=== PATIENT | female | born 1965 | race Caucasian/White ===

== ENCOUNTER 2024-01-05 15:01 | Emergency (ER) | payer MEDICARE, MEDICAID ==
[~2024-01-05] VITALS: Ht 162.6 cm; Wt 73.6 kg
[2024-01-05] MEDS: proparacaine 0.5% ophthalmic drops 15ml LEFTEYE ONE (16:26)
[2024-01-05] MEDS: erythromycin ophthalmic ointment 1gm tube LEFTEYE ONE (16:26)
[2024-01-05] MEDS ORDERED: ERYT1OIN6 LEFTEYE (16:30)
[2024-01-05] MEDS ORDERED: AMOX-580 PO (16:30)
[2024-01-05 16:37] VITALS: BP 114/67; PULSE 71; RESP 15; TEMP 98.4; O2SAT 99
== END 2024-01-05 16:38 | disposition home or self-care (01) ==
LOC: ER 15:02
DX: S05.02XA Injury of conjunctiva and corneal abrasion without foreign body, left eye, initial encounter (principal); Z88.8 Allergy status to other drugs, medicaments and biological substances; Z79.2 Long term (current) use of antibiotics; W54.0XXA Bitten by dog, initial encounter; Y93.89 Activity, other specified; Y92.89 Other specified places as the place of occurrence of the external cause; Y99.8 Other external cause status
CPT/HCPCS: 99283; A6410

== ENCOUNTER 2024-03-17 16:21 | Emergency (ER) | payer MEDICARE, MEDICAID ==
[~2024-03-17] VITALS: Ht 160 cm; Wt 71.8 kg
[2024-03-17] MEDS: acetaminophen 325mg tablet PO ONE (17:43)
[2024-03-17] MEDS ORDERED: AMOX-580 PO (18:25)
[2024-03-17] MEDS: amox tr/potassium clavulanate 875/125mg TAB PO ONE (18:40)
[2024-03-17 18:56] VITALS: BP 134/78; PULSE 84; RESP 16; TEMP 98.3; O2SAT 98
== END 2024-03-17 18:57 | disposition home or self-care (01) ==
LOC: ER 16:22
DX: N61.1 Abscess of the breast and nipple (principal); Z88.5 Allergy status to narcotic agent; Z79.2 Long term (current) use of antibiotics
CPT/HCPCS: 10160; 76642; 82948; 87070; 99284

== ENCOUNTER 2024-03-19 15:16 | Outpatient (CLI) | payer MEDICAID, MEDICARE ==
[~2024-03-19 15:16] MED LIST: AMOX-580 PO
== END 2024-03-19 23:59 | disposition home or self-care (01) ==
LOC: LAB SPEC 15:16
PROVIDERS: ATTEND Surgery
DX: N61.0 Mastitis without abscess (principal)
CPT/HCPCS: 87070; 87075

== ENCOUNTER 2024-06-19 12:20 | Emergency (ER) | payer MEDICARE, MEDICAID ==
[~2024-06-19] VITALS: Ht 160 cm; Wt 63.9 kg
[~2024-06-19 12:20] MED LIST changes: -AMOX-580 PO; +INSU200I SUBCUT
[2024-06-19 12:23] VITALS: BP 147/49; PULSE 75; RESP 16; TEMP 98.4; O2SAT 97
== END 2024-06-19 13:45 | disposition left against medical advice (07) ==
LOC: ER 12:21
DX: R05.9 Cough, unspecified (principal); J00 Acute nasopharyngitis [common cold]; R09.81 Nasal congestion; Z53.21 Procedure and treatment not carried out due to patient leaving prior to being seen by health care provider

== ENCOUNTER 2025-03-22 14:35 | Emergency (ER) | payer MEDICARE, MEDICAID ==
[~2025-03-22] VITALS: Ht 160 cm; Wt 70.5 kg
[2025-03-22 14:37] VITALS: TEMP 97.8
[2025-03-22 16:31] LABS: MEAN PLATELET VOLUME 7.1 FL (7.4-10.4); RED CELL DISTRIBUTION WIDTH 13.4 % (11.5-14.5)
[2025-03-22 16:44] LABS: CREATININE 0.79 MG/DL (0.40-0.90); TOTAL CARBON DIOXIDE 29.2 MMOL/L (24-32); eCRCL 63 ML/MIN; eGFR 74 ML/MIN
--- NOTE | 2025-03-22 17:07 | Physician Documentation ---
History of Present Illness ~ Chief Complaint: Dizziness Stated Complaint: DIZZNESS/VOMITING Time Seen by MD: 15:41 Primary Medical Doctor: JULIO COLINDRES Source: patient Mode of Arrival: POV Exam Limitations: no limitations HPI 59-year-old female with intermittent dizziness and she is concerned that this may be a symptom of Parkinson's. She also reports intermittent vomiting. She states the dizziness occurred about three days after she hit her head trying to load her dog into her truck. There was no LOC and no headache. She states the dizziness is not related to head position or body position. She currently is asymptomatic. She also reports that her limbs have been jerking and she is not sure if this is "Parkinson's or psychological." No headache, vision changes, chest pain, palpitations, sob, abdominal pain, nausea, syncopal episodes. Medication Reconciliation Allergies: Coded Allergies: codeine (Verified Allergy, Unknown, 03/17/24) oxycodone (Verified Allergy, Unknown, 03/17/24) Scheduled Insulin Lispro (Humalog Kwikpen), 12 UNIT SUBCUT DAILY Past Medical History Past Medical History: Anxiety, Depression Past Surgical History: noncontributory Drug Use: none Lives In: Home Review of Systems All Other Systems at this time: Reviewed and Negative Physical Exam Vital Signs: Temperature: 97.8, Source: Oral, Heart Rate: 78, Respiratory Rate: 17, BP: 184/67, Pulse Oximetry: 97, Weight: 70.500 Oxygen Flow Rate: 0 Physical Exam GENERAL: Alert, no acute distress. HEENT: NCAT, EOMI, PERRLA, normal oropharynx, moist oral mucosa. NECK: Supple, trachea midline. CARDIAC: Regular rate and rhythm, no murmurs, rubs, or gallops. PV: Equal distal pulses. No lower extremity edema, cap refill less than 2 seconds. RESPIRATORY: Equal breath sounds, clear to auscultation bilaterally, no respir atory distress. GASTROINTESTINAL: Non distended, soft, nontender, No guarding or rebound. MUSCULOSKELETAL: Normal range of motion, nontender, no swelling. Normal gait. NEUROLOGICAL: Awake, alert, and oriented x 3. cn 2-12 intact. SKIN: Warm/dry, no pallor, no rash. PSYCH: Alert and appropriate. Affect congruent with mood. Speech is clear. Good eye contact. Progress Results/Orders Results/Orders Vital Signs 03/22/25 03/22/25 03/22/25 03/22/25 14:37 15:16 16:29 17:16 Temp 97.8 Pulse 78 79 Resp 16 17 16 B/P (MAP) 184/67 159/88 Pulse Ox 96 97 98 O2 Delivery Room Air* O2 Flow Rate 0 0 FiO2 21 Laboratory Tests Test 03/22/25 15:43 White Blood Count 10.6 Red Blood Count 4.92 Hemoglobin 15.1 Hematocrit 42.5 Mean Corpuscular Volume 86.4 Mean Corpuscular Hemoglobin 30.6 Mean Corpuscular Hemoglobin Concent 35.4 Red Cell Distribution Width 13.4 Platelet Count 425 Mean Platelet Volume 7.1 L Neutrophils (%) (Auto) 63.4 Lymphocytes (%) (Auto) 27.5 Monocytes (%) (Auto) 6.8 Eosinophils (%) (Auto) 1.5 Basophils (%) (Auto) 0.8 Neutrophils # (Auto) 6.7 Lymphocytes # (Auto) 2.9 Monocytes # (Auto) 0.7 Eosinophils # (Auto) 0.2 Basophils # (Auto) 0.1 CBC Comment Sodium Level 141 Potassium Level 4.1 Chloride Level 104 Carbon Dioxide Level 29.2 Anion Gap 8 Blood Urea Nitrogen 17 Creatinine 0.79 Estimated GFR/1.73 m2 74 BUN/Creatinine Ratio 21.5 H Glucose Level 170 H Calcium Level 8.9 Total Bilirubin 0.4 Aspartate Amino Transf (AST/SGOT) 22 Alanine Aminotransferase (ALT/SGPT) 31 Alkaline Phosphatase 86 Total Protein 7.3 Albumin 3.6 Globulin 3.7 Albumin/Globulin Ratio 1.0 L Chemistry Comments Medical Decision Making Additional information obtaine: N/A Findings n/a Differential Dx:Considerations: Include: anemia, CVA, dehydration, dysrhythmia, electrolyte imbalance, encephalopathy, Guillain-Keiser, hypoglycemia, hypotension, hypovolemia, labyrinthitis, Meniere's disease, myasathenia gravis, myocardial infarction, pulmonary embolus, renal failure, respiratory failure, TIA, VBI, vertigo central, vertigo peripheral, vestibular neuronitis, other Additional Information PATIENT HAS NO SYMPTOMS OF ORTHOSTATIC HYPOTENSION DIZZINESS NOT LIGHTHEADEDNESS AND NO RELATIONSHIP TO POSITION, SYMPTOMS ARE NOT RELATED TO HEAD POSITION AND NO NYSTAGMUS ON EXAM, NO ANEMIA OR ELECTROLYTE DISTURBANCE Departure Time of Disposition: 17:07 Disposition: 01 HOME / SELF CARE / HOMELESS Impression: Primary Impression: Dizziness Condition: Stable Discharge Instructions: Dizziness Additional Instructions: intermittent currently asymptomatic this dizziness is not consistent with central causes or vertigo/inner ear, no arrhythmia f/u with primary care provider for outpatient work up and return to er if worsening of symptoms Referrals: NO PRIMARY CARE PROVIDER (PCP) Education Educated: Patient Educated regarding: diagnosis, treatment, need for follow up Signature Scribe Signature: x Attestation: SHILO Mcduffie Mar 22, 2025 17:07
[2025-03-22 17:16] VITALS: BP 159/88; PULSE 79; RESP 16; O2SAT 98
== END 2025-03-22 17:20 | disposition home or self-care (01) ==
LOC: ER 14:36
DX: R42 Dizziness and giddiness (principal); R11.10 Vomiting, unspecified; F41.9 Anxiety disorder, unspecified; F32.A Depression, unspecified; Z88.5 Allergy status to narcotic agent; Z79.4 Long term (current) use of insulin
CPT/HCPCS: 36415; 80053; 85025; 99283

== ENCOUNTER 2025-05-31 14:49 | Emergency (ER) | payer MEDICARE, MEDICAID ==
[~2025-05-31] VITALS: Ht 160 cm; Wt 72.7 kg
--- NOTE | 2025-05-31 15:29 | Physician Documentation ---
History of Present Illness ~ Chief Complaint: Cold, cough & congestion Stated Complaint: COLD SYMPTOMS Time Seen by MD: 15:51 Primary Medical Doctor: JULIO COLINDRES Source: patient Mode of Arrival: POV Exam Limitations: no limitations HPI 60-year-old female with cold cough congestion x3 days nonproductive cough. Patient has history of COPD no chest pain or shortness of breath Medication Reconciliation Allergies: Coded Allergies: codeine (Verified Allergy, Unknown, 05/31/25) oxycodone (Verified Allergy, Unknown, 05/31/25) Scheduled Insulin Lispro (Humalog Kwikpen), 12 UNIT SUBCUT DAILY Past Medical History Past Medical History: Anxiety, Depression Past Surgical History: noncontributory Drug Use: none Lives In: Home Review of Systems All Other Systems at this time: Reviewed and Negative Respiratory: Reports: see HPI Physical Exam Vital Signs: RN Vital Signs have been reviewed: Yes, Temperature: 98.1, Source: Oral, Heart Rate: 50, Respiratory Rate: 20, BP: 155/49, Pulse Oximetry: 96, Weight: 72.700 Oxygen Flow Rate: 0 Physical Exam General: Alert, no apparent distress. HEENT: PERRL, EOMI, no injection, moist mucous membranes. Neck: Full range of motion. Respiratory: Lungs clear, no respiratory distress. Wheezes rales or rhonchi but diminished lung sounds in the posterior bases Chest: No accessory muscle use. Cardiovascular: Regular rate and rhythm, no murmurs. Extremities: Normal range of motion, no deformity. Neurologic: Oriented x4. Psychiatric: Normal mood and affect. Skin: Normal color, warm and dry. No edema, no ecchymosis. Progress Results/Orders Results/Orders Orders - HEYDI ROBERTS TECH[employer]ICAL SALES MANAGER Chest,Single View (05/31/25 15:22) Completed Orders - HEYDI ROBERTS TECH[employer]ICAL SALES MANAGER Chest,Single View (05/31/25 15:22) Vital Signs 05/31/25 15:17 Temp 98.1 Pulse 50 Resp 20 B/P (MAP) 155/49 Pulse Ox 96 O2 Flow Rate 0 EKG/XRAY/CT/US/VASC/MRI Chest X-Ray : Additional Comments CHEST RADIOGRAPH INDICATION: History of COPD concerned for pneumonia TECHNIQUE: Single frontal view of the chest was obtained COMPARISON: None FINDINGS: Lines and Tubes: None Lungs: Mildly increased nonspecific interstitial changes at both lung bases without consolidation. Pleura: No effusion. No pneumothorax. Cardiomediastinal contours: Unremarkable Bones: Unremarkable IMPRESSION: 1. Mildly increased nonspecific interstitial changes at both lung bases without consolidation. Medical Decision Making Additional information obtaine: N/A Findings Patient's respiratory history with COPD multiple inhalers used and complaints of cold cough congestion for 3 days. X-ray to evaluate for any infective process such as pneumonia. There is some consolidation but no infiltrates noted on x- ray. Patient will be scribed medications due to her lung history and follow up with primary care Differential Dx:Considerations: Include: Influenza, Pneumonia, Sinusitis, URI Departure Time of Disposition: 16:37 Disposition: 01 HOME / SELF CARE / HOMELESS Impression: Primary Impression: Acute bronchitis Condition: Stable Discharge Instructions: Upper Respiratory Infection, Adult Additional Instructions: Take her inhalers as prescribed. Take medications as prescribed and follow up with primary care as needed. Monitor for any new or worsening symptoms feel free to return to the ER Referrals: NO PRIMARY CARE PROVIDER (PCP) Prescriptions Benzonatate* (Benzonatate*) 100 Mg Capsule 1 CAP PO Q8H for cough for 10 Days, #30 CAP Prov: HEYDI ROBERTS NP 05/31/25 Guaifenesin (Guaifenesin) 400 Mg Tablet 1 TAB PO Q8H for cough for 5 Days, #15 TAB 0 Refills Prov: HEYDI ROBERTS NP 05/31/25 Azithromycin (Zithromax) 250 Mg Tablet 1 TAB PO UD for 5 Days, #6 TAB 2 the first day followed by 1 for days 2-5 Prov: HEYDI ROBERTS NP 05/31/25 Education Educated: Patient Educated regarding: diagnosis, need for follow up Signature Scribe Signature: No scribe Attestation: The note accurately reflects work and decisions made by me.Heydi HARMON 05/31/25 16:40 HEYDI ROBERTS NP May 31, 2025 15:29
--- NOTE | 2025-05-31 15:48 | RADIOLOGY REPORT ---
CHEST RADIOGRAPH INDICATION: History of COPD concerned for pneumonia TECHNIQUE: Single frontal view of the chest was obtained COMPARISON: None FINDINGS: Lines and Tubes: None Lungs: Mildly increased nonspecific interstitial changes at both lung bases without consolidation. Pleura: No effusion. No pneumothorax. Cardiomediastinal contours: Unremarkable Bones: Unremarkable IMPRESSION: 1. Mildly increased nonspecific interstitial changes at both lung bases without consolidation.
[2025-05-31] MEDS ORDERED: AZIT250T2 PO (16:39)
[2025-05-31] MEDS ORDERED: GUAI400T92 PO (16:39)
[2025-05-31] MEDS ORDERED: BENZ-38 PO (16:39)
[2025-05-31 17:08] VITALS: BP 137/116; PULSE 68; RESP 17; TEMP 98.1; O2SAT 96
== END 2025-05-31 16:49 | disposition home or self-care (01) ==
LOC: ER 14:50
DX: J20.9 Acute bronchitis, unspecified (principal); F41.9 Anxiety disorder, unspecified; F32.A Depression, unspecified; Z79.899 Other long term (current) drug therapy; Z88.5 Allergy status to narcotic agent
CPT/HCPCS: 71045; 99283